=== PATIENT | male | born 1955 | race Caucasian/White ===

== ENCOUNTER → 2018-03-29 | Outpatient (CLI) | payer OTHER | END | disposition home or self-care (01) | LOC: PCVCCLINIC 11:59 | PROVIDERS: ATTEND Internal Medicine | DX: R94.31 Abnormal electrocardiogram [ECG] [EKG] (principal); R53.83 Other fatigue; E78.5 Hyperlipidemia, unspecified; E11.9 Type 2 diabetes mellitus without complications; F17.200 Nicotine dependence, unspecified, uncomplicated; M15.3 Secondary multiple arthritis; J44.9 Chronic obstructive pulmonary disease, unspecified | CPT/HCPCS: 93005; G0463 ==

== ENCOUNTER → 2018-04-13 | Outpatient (CLI) | payer OTHER ==
--- NOTE | 2018-04-13 09:07 | PCVCIMAG ---
APPROVED REPORT Study performed: 04/13/2018 08:07:57 EXAM: Comprehensive 2D, Doppler, and color-flow Echocardiogram Patient Location: Echo lab Status: routine BSA: 2.28 HR: 70 bpmBP: 138/82 mmHg Rhythm: NSR Other Information Study Quality: Adequate Risk Factors: Cardiac Risk Factors: HTN, Hyperlipidemia, DM, Smoking Indications Abnormal ECG CAD 2D Dimensions IVSd: 9.16 (7-11mm)LVOT Diam: 20.00 (18-24mm) LVDd: 47.75 mm PWd: 10.49 (7-11mm)Ascending Ao: 31.46 (22-36mm) LVDs: 34.49 (25-40mm) Left Atrium: 41.03 (27-40mm) Aortic Root: 29.19 mm LV Single Plane 4CH: 58.31 % LV Single Plane 2CH: 64.44 % Biplane EF: 63.9 % Volumes Left Atrial Volume (Systole) Single Plane 4CH: 55.76 mLSingle Plane 2CH: 71.86 mL LA ESV Index: 29.00 mL/m2 Aortic Valve AoV Peak Binh.: 1.23 m/s AO Peak Gr.: 6.04 mmHgLVOT Max P.90 mmHg LVOT Max V: 0.85 m/s RADHA Vmax: 2.25 cm2 Mitral Valve E/A Ratio: 1.1 MV Decel. Time: 230.23 ms MV E Max Binh.: 0.98 m/s MV A Binh.: 0.93 m/s IVRT: 58.82 ms TDI E/Lateral E': 9.80E/Medial E': 14.00 Medial E' Binh.: 0.07 m/s Lateral E' Binh.: 0.10 m/s Pulmonary Valve PV Peak Binh.: 0.93 m/sPV Peak Gr.: 3.45 mmHg Pulmonary Vein P Vein S: 0.55 m/sP Vein A: 0.27 m/s P Vein D: 0.61 m/sP Vein A Dur.: 121.1 msec P Vein S/D Ratio: 0.90 Tricuspid Valve TR Peak Binh.: 1.96 m/sRAP Estimate: 7.00 mmHg TR Peak Gr.: 15.31 mmHg PA Pressure: 22.00 mmHg Left Ventricle The left ventricle is normal size. There is normal LV segmental wall motion. There is normal left ventricular wall thickness. Left ventricular systolic function is normal. The left ventricular ejection fraction is within the normal range. LVEF is 60-65%. Grade II - pseudonormal filling dynamics. Right Ventricle The right ventricle is normal size. The right ventricular systolic function is normal. Atria The left atrium size is normal. The right atrium size is normal. Aortic Valve The Aortic valve is sclerotic. No aortic regurgitation is present. There is no aortic valvular stenosis. Mitral Valve The mitral valve is normal in structure. Trace mitral regurgitation. No evidence of mitral valve stenosis. Tricuspid Valve The tricuspid valve is normal in structure. Trace tricuspid regurgitation. Pulmonary artery pressure is 22 mmHg. Pulmonic Valve The pulmonary valve is normal in structure. There is no pulmonic valvular regurgitation. Great Vessels The aortic root is normal in size. IVC is normal in size and collapses >50% with inspiration. Pericardium There is no pericardial effusion. <Conclusion> The left ventricle is normal size. LVEF is 60-65%. The Aortic valve is sclerotic. The mitral valve is normal in structure. Trace mitral regurgitation. The tricuspid valve is normal in structure. Trace tricuspid regurgitation. Pulmonary artery pressure is 22 mmHg. The pulmonary valve is normal in structure. There is no pericardial effusion.
== END | disposition home or self-care (01) ==
LOC: PCVCIMAG 07:59
PROVIDERS: ATTEND Internal Medicine
DX: I25.10 Atherosclerotic heart disease of native coronary artery without angina pectoris (principal); I35.0 Nonrheumatic aortic (valve) stenosis; R94.31 Abnormal electrocardiogram [ECG] [EKG]
CPT/HCPCS: 93306